=== PATIENT | male | born 1980 | race Caucasian/White ===

== ENCOUNTER 2019-05-17 12:22 | Inpatient (IN) ==
[2019-05-17 13:27] VITALS: BMI 43.7
--- NOTE | 2019-05-17 15:28 | DI ---
EXAM: Chest two views HISTORY: Cough COMPARISON: None TECHNIQUE: Two views of the chest were performed FINDINGS: Mild basilar subsegmental atelectasis. No airspace consolidation. Granulomatous calcific ation. There is no pleural effusion or pneumothorax. The heart is normal in size. The mediastinal contour is normal. There are no acute abnormalities of the bones. IMPRESSION: No acute cardiopulmonary process.
--- NOTE | 2019-05-17 15:52 | CT ---
EXAM: CT of the left foot without contrast History: Left foot pain, diabetes. 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 No acute fracture or dis location. Calcaneal enthesiopathy. Soft tissue ulcer along the lateral plantar aspect of the foot d istal fourth and fifth metatarsal region with associated soft tissue gas measuring about 4.7 cm x 3.0 cm. Evaluation for abscess is limited due to the lack of contrast administration. There is no tavo k cortical destruction identified to suggest osteomyelitis. There is diffuse subcutaneous edema. Mi ld to moderate arthritis is seen at the mid foot. There is probably a soft tissue ulcer along the la teral aspect of the calcaneus. Impression: 1. Soft tissue ulcer with soft tissue gas seen along the lateral plantar surface of the foot is cons istent with deep soft tissue infection and abscess. Recommend orthopedic surgical consult. 2. Diffuse cellulitis. 3. No CT evidence for osteomyelitis at this time. 4. Probable soft tissue ulcer along the lateral aspect of the calcaneus. Correlate with physical ex am.
[2019-05-17] MEDS: VANCOMYCIN 1 GM in SODIUM CHLORIDE 250 ML IV SCH (17:00)
[2019-05-17] MEDS: LYRICA PO SCH (20:51)
[2019-05-17] MEDS ORDERED: NON-FORMULARY MEDICATION SUBCUT SCH (21:00)
[2019-05-18] MEDS: VANCOMYCIN 1 GM in SODIUM CHLORIDE 250 ML IV SCH ×3 (02:56→18:21)
[2019-05-18] MEDS: LYRICA PO SCH ×2 (08:12→20:06)
[2019-05-18] MEDS: COZAAR PO SCH (08:12)
[2019-05-18] MEDS: HUMALOG SUBCUT SCH ×3 (08:13→18:21)
[2019-05-18] MEDS ORDERED: [UNRECOGNIZED DRUG - OTHER] SQ SCH (09:00)
[2019-05-18] MEDS ORDERED: ZESTRIL PO SCH (09:00)
[2019-05-18] MEDS ORDERED: INSULIN GLARGINE HUM REC ANLOG 45 UNIT SQ SCH (09:00)
[2019-05-18] MEDS: LOVENOX SUBCUT SCH (20:06)
[2019-05-18] MEDS: INSULIN GLARGINE HUM REC ANLOG 60 UNIT SUBCUT SCH (20:12)
[2019-05-18] MEDS: [UNRECOGNIZED DRUG - OTHER] SUBCUT SCH (20:12)
[2019-05-19] MEDS: VANCOMYCIN 1 GM in SODIUM CHLORIDE 250 ML IV SCH ×2 (00:08→09:55)
[2019-05-19] MEDS: HUMALOG SUBCUT SCH ×3 (07:59→17:21)
[2019-05-19] MEDS: COZAAR PO SCH (07:59)
[2019-05-19] MEDS: LYRICA PO SCH ×2 (07:59→20:34)
[2019-05-19] MEDS: VANCOMYCIN 2 GM in SODIUM CHLORIDE 500 ML IV SCH ×2 (10:15→17:21)
[2019-05-19] MEDS: [UNRECOGNIZED DRUG - OTHER] SUBCUT SCH (20:35)
[2019-05-19] MEDS: INSULIN GLARGINE HUM REC ANLOG 60 UNIT SUBCUT SCH (20:35)
[2019-05-19] MEDS: LOVENOX SUBCUT SCH (20:39)
[2019-05-19] MEDS ORDERED: SILVADENE CREAM TP SCH (21:00)
[2019-05-19] MEDS: SILVADENE CREAM TP SCH (21:38)
[2019-05-19] MEDS ORDERED: GENTAMICIN SULFATE ONE (23:42)
[2019-05-19] MEDS: GENTAMICIN SULFATE 80 MG in SODIUM CHLORIDE 50 ML IV SCH (23:47)
[2019-05-20] MEDS: VANCOMYCIN 2 GM in SODIUM CHLORIDE 500 ML IV SCH ×2 (00:29→09:12)
[2019-05-20] MEDS ORDERED: GENTAMICIN SULFATE ONE (04:40)
[2019-05-20] MEDS: GENTAMICIN SULFATE 80 MG in SODIUM CHLORIDE 50 ML IV SCH ×2 (04:41→13:31)
[2019-05-20] MEDS ORDERED: SILVADENE CREAM TP SCH (09:00)
[2019-05-20] MEDS: LYRICA PO SCH (09:11)
[2019-05-20] MEDS: COZAAR PO SCH (09:11)
[2019-05-20] MEDS: HUMALOG SUBCUT SCH ×2 (09:18→13:32)
[2019-05-20] MEDS: SILVADENE CREAM TP SCH (09:21)
[2019-05-20] MEDS ORDERED: ATROPINE SULFATE SDV IVP STA (10:27)
[2019-05-20] MEDS ORDERED: DOBUTAMINE 500 MG-D5W 250 ML 500 MG in PREMIX 250 ML D5W 1 BAG IV SCH (10:30)
[2019-05-20] MEDS ORDERED: DOBUTAMINE 500 MG-D5W 250 ML 250 ML IV ONE (11:56)
[2019-05-20] MEDS ORDERED: ATROPINE SULFATE PFS IVP STA (11:57)
--- NOTE | 2019-05-20 12:27 | US ---
EXAM: Ultrasound extremity, limited HISTORY: Concern for abscess. FINDINGS: Gallego-scale and color Doppler imaging was performed of the left foot described as focused a t the left foot around little toe and bottom as well as left foot heel. No clearly defined abscess w as seen by ultrasound. There appeared to be subcutaneous edema. IMPRESSION: 1. No well-defined abscess was identified sonographically. Subcutaneous edema is suggested. Consid er correlation with MRI.
--- NOTE | 2019-05-20 12:33 | PN ---
DATE OF SERVICE: 05/19/19 SUBJECTIVE: The patient had swelling and redness on the metatarsophalangeal joints of the first, second and also the third. There is an opening on the plantar surface which was the initial area that was a blister. It is draining a purulent material. A CT scan does not visualize a well defined abscess cavity but sees necrotic tissue. The patient had intact blisters a week ago and was left in place but the blister had ruptured and so the blister today is debrided. The blister on the left foot was large and also the right foot. The patient at the beginning never had any pain sensation. He did see a blister a week before he went to the Wound Care at [facility] and that was about 9 days ago. I saw him at the office initially and advised him to stay at home and elevate the foot as much as possible except for needed necessities such as going to the bathroom or eating. An MRI of the foot is order today to see further. There was no obvious osteomyelitis on CAT scan. Mother is a nurse who works at the hospital. I did tell them, the patient as well as the mother that I will refer him to Dr. Suarez who did the previous amputation. This foot needs wide incision and drainage to hopefully control the infection. Blisters today were unroofed and there was some necrotic tissue. Cultures on each blistered area was done. Blister on the right foot has better tissue underneath compared to the left. I told them again that I will try to get in touch with the surgeon tomorrow and I will begin with Dr. Suarez, see if he is willing to see him in his service. If not we will have to find another surgeon who will do a drainage of the foot. If we could not find any I told the patient that if they are willing as well as the mother for me to do the procedure. I do not intend to do that unless there is no other way. His diabetes is still uncontrolled. The two are postprandial sugars are in the range of 270's. The Humalog will be increased to 14 units from 10 every meal. The same testing. The areas in the foot will be dressed after washing it with sulfadiazine. He is receiving Vancomycin 2 grams Q 8 hours. Wound Culture showed moderate growth of gram positive cocci is probably likely Staph, also heavy growth of gram negative rods. Probably will be treated with Garamycin for now to be changed depending upon the results of the ID EDGAR. The patient is allergic to Metformin, Sitagliptin, codeine and niacin. MTDD
--- NOTE | 2019-05-20 13:44 | ECHOSTRESS ---
Date of Exam: 05/20/2019 Ordering Physician: DR. PINZON Reason for Echo: CHEST PAIN, DIABETES MELLITUS TYPE 2, HYPERTENSION, DOBUTAMINE STRESS = NO ISCHEMIA M-Mode Normal Adult Results LV Dimensions Normal Adult Results AoV Opening excursions >1.6 LVEDD-base- 3.5-5.8 Ao root dimensions 2.0-3.7 LVESD-base- 3.1-4.6 L. Atrium dimensions 1.9-3.8 Post. Wall thickness 0.8-1.1 IV septum (thickness) 0.7-1.2 Post. Wall excursion 0.72-1.3 Septal motion Systolic motion R. Ventricular cavity 1.5-2.0 LVEF 60% Paradoxical septal wall motion 2-D: NORMAL LEFT VENTRICULAR CONTRACTILITY RESTING AND WITH DOBUTAMINE INFUSION M-MODE: MV: AV: TV: PV: CHAMBER SIZE: WALL MOTION: NORMAL LEFT VENTRICULAR CONTRACTILITY RESTING AND WITH DOBUTAMINE INFUSION PERICARDIUM: INTERPRETATION: 1. NORMAL LEFT VENTRICULAR CONTRACTILITY RESTING AND WITH DOBUTAMINE INFUSION MTDD
--- NOTE | 2019-05-20 13:53 | DOBSTECHO ---
Date of Test: 05/20/2019 Ordering Physician: DR. PINZON Smoking History: NEVER Reason for Examination: CHEST PAIN, DIABETES MELLITUS TYPE 2, HYPERTENSION Current Medications: TYLENOL, IBUPROFEN, VANCOMYCIN HCL, LYRICA, HUMALOG, ZESTRIL, COZAAR, INSULIN GLARGINE, LOVENOX Height: 75" Weight: 349 Glaucoma: NO SaO2: 95% AT REST AND 97% WITH DOBUTAMINE INFUSION ON ROOM AIR Target Heart Rate: 154 / 182 S-T Segment Stage Time HR BPM BP MMHG Rhythm +/- Elevation Depression Symptoms Control Sitting 84 130/86 SR X NONE Dobutamine 250mg/D5W 5cmg/KG/mn 10cmg/KG/mn 3" 92 138/78 SR X NONE 15cmg/KG/mn 2" 112 192/60 SR X NONE 20cmg/KG/mn 2:44 153 184/54 SR X NONE 25cmg/KG/mn 30cmg/KG/mn 35cmg/KG/mn 40cmg/KG/mn 4 MIN POST INFUSION z 134 162/80 SR X NONE 12 MIN POST INFUSION z 100 SR X NONE DURATION OF INFUSION 7 MINUTES AND 44 SECONDS MAXIMUM HEART RATE REACHED 153 Interpretation: 1. NO EVIDENCE OF ISCHEMIA BY ST-T WAVE 2. NO CHEST PAIN OR DISCOMFORT 3. NORMAL LEFT VENTRICULAR CONTRACTILITY RESTING AND WITH DOBUTAMINE INFUSION MTDD
[2019-05-20 13:58] VITALS: BP 133/81; TEMP 98.4
--- NOTE | 2019-05-20 14:45 | HP ---
DATE OF SERVICE: 05/17/19 CHIEF COMPLAINT: Diabetic foot ulcers, increase in pain and worsening drainage. HISTORY OF PRESENT ILLNESS: Mr. Silverman is a pleasant 39 year old patient of Dr. Siddiqi who presented to the office for his second follow of diabetic foot ulcers. Today the area to the left foot ulcer the plantar aspect appears to look worse. There are more areas with surrounding blisters. The center does appear to look necrotic. This abscess has been nonhealing for several weeks now. He has been off and on antibiotics. A culture was done several weeks ago. A culture was not done last week as he was recently on an antibiotic per [facility]. He does have a blister to his left heal that is hard and tender and he has two right heal blisters that are hard and both with open areas. Because this area to the left foot appears necrotic and continuing to drain it is felt that Mr. Silverman needs to be evaluated in the hospital. He has also had complaints of some fever and chills. He does have peripheral venous insufficiency. He has had some complaints of chest pain as well, left sided and this also needs to be evaluated and worked up with a stress test. PAST PERSONAL HISTORY: Diabetes Mellitus type 2 uncontrolled Gout Hypertension Sleep apnea Hyperlipidemia Anxiety Depression Hypertriglyceridemia Neuropathy Venous insufficiency Edema Adenoidectomy Tonsillectomy Ingrown toe nail FAMILY HISTORY: Liver disease. Father history of lung cancer. Diabetes mellitus in his mother and father. SOCIAL HISTORY: Smoking: Never. Alcohol intake: none. Substance abuse: Denies any substance abuse. MEDICATIONS: Silvadene, he has been applying to his foot Sertraline 50mg daily Fenofibrate 65mg once daily Lipitor 40mg daily Lantus 35 units at bedtime Lisinopril 10mg tablet daily Metformin 1000mg tablet twice a day Flexeril 10mg tablet twice a day as needed ALLERGIES: Metformin Janumet Codeine Niacin REVIEW OF SYSTEMS: CONSTITUTIONAL: He does report fevers and chills. No reports of night sweats or weight changes. HEENT: No reports of headaches, nasal drainage or sore throat CARDIOVASCULAR: No reports of irregular rhythm or orthopnea. He has had some peripheral edema worsening over the last couple of weeks. He had had some left sided chest pain. RESPIRATORY: No complaints of shortness of breath, cough or congestion. No reports of lung disease. GI: No complaints of abdominal pain, nausea, vomiting, diarrhea, constipation or blood in the stool. : No reports of dysuria, hematuria, nocturia or urinary incontinence. MUSCULOSKELETAL: No reports of muscles pain, joint redness or swelling. NEUROLOGICAL: No reports of dizziness, fatigue or neurological deficit. PSYCHIATRIC: Denies any anxiety, depression or mood changes. ENDOCRINE: He does have a history of Diabetes Mellitus. No reports of thyroid disease INTEGUMENTARY: He does have complaints of lower extremity diabetic ulcers that are worsening over the past several weeks with lower extremity foot blisters. PHYSICAL EXAMINATION: GENERAL: He is alert and oriented at present. VITAL SIGNS: Height 75", weight 352, BMI 44, respiratory rate 20, pulse 94, blood pressure 140/96 and pulse ox 93% on room air. HEENT: Head is normal and cephalic. Atraumatic. Pupils are equal. Neck is supple. No Lymphadenopathy. No thyroidmegaly, No carotid bruit. CARDIOVASCULAR: S1 and S2. Regular rate and rhythm. LOWER EXTREMITIES: He does have lower extremity edema. Pedal pulses present. Left posterior tibialis and right posterior tibialis absent to left anterior and right anterior. LUNGS: Clear. Breathing normal ABDOMEN: Soft. Bowel sounds are positive. No tenderness. No rebound tenderness. No rigidity. NEUROLOGICAL: Cranial nerves II through XII are grossly intact without any neurological deficit. SKIN: There is a left foot ulceration on the plantar aspect open area to the center, 1cm x 3cm center. That is draining and necrotic with purulent drainage. There are surrounding blisters and erythema. The redness extends to the top of the left foot. The left heal blister is hard and tender and there is two right heal blisters that are hard both with open areas. ASSESSMENT: 1. Left lower extremity cellulitis with necrotic abscess to the left foot 2. Fever and chills 3. Diabetes mellitus type 2, uncontrolled 4. Hypertension 5. Hypertriglyceridemia 6. Hyperlipidemia 7. Peripheral vascular disease with history of toe amputation in the past 8. Neuropathy 9. Chest pains with plans for stress echo during this hospitalization PLAN: 1. Admit the patient 2. Obtain cultures, including wound and blood cultures 3. Chest x-ray 4. EKG 5. Cardiac markers 6. Stress echo 7. CT scan of the lower extremity Please see admit orders. Further orders and recommendation per Dr. Siddiqi. TIME SPENT: GREATER THAN 65 MINUTES MTDD
--- NOTE | 2019-05-20 15:39 | DS ---
DATE OF SERVICE: 05/20/19 HISTORY OF PRESENT ILLNESS/HOSPITAL COURSE: Mr. Silverman is a pleasant 39 year old patient previously of Dr. Bergeron and he tells me that Dr. Bergeron is going to be transferring practices to another [facility]. He has started following Dr. Siddiqi and he has asked Dr. Siddiqi to take a look at his foot ulcerations. Upon second visit with Dr. Siddiqi his wounds and ulcerations looked worse especially the left ulceration, this is a diabetic abscess. It appeared to necrotic and it had increase in drainage. Dr. Siddiqi decided to admit the patient inpatient and do a CT scan of this foot. The CT scan was reviewed and showed soft tissue ulcer with soft tissue gas seen along the lateral plantar surface of the foot, it is consistent with deep soft tissue infection and abscess with recommendation for Orthopedic surgical consult. Also showed diffused cellulitis. There was no CT evidence for osteomyelitis at this time. Also showed probable soft tissue ulcer along the lateral aspect of the calcaneus with correlation with physical exam. 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 This showed a normal left ventricular contractility resting and with Dobutamine infusion. He has not had any further complaints of chest pain during this hospital stay. The Dobutamine stress echo did show no evidence of ischemia by ST -T wave, no chest pain or discomfort and normal left ventricular contractility resting and with Dobutamine infusion. Lower extremity ultrasound showed no well defined abscess identified sonographically, subcutaneous edema was suggested with consider correlation with an MRI. Chest x-ray was done 05/17/19 and it did show no acute cardiopulmonary process. Labs were reviewed. His WBC today on 07/01 was 10.42, hgb 13.1, hct 37.7, plt count 215, sodium 139.6, BUN 9.3, creatinine 0.68, GFR 131.His Total CK less than 30, Procalcitonin on admission less than 0.05. He did have a wound cultures that were positive for MRSA as well as positive for E-coli. His blood cultures were negative times two days. PHYSICAL EXAM: LUNGS: Clear HEART: Regular LOWER EXTREMITIES: Wrapped at discharge in dressing. ABDOMEN: Soft, bowel sounds are positive all four quadrants. He does have an abdominal wound, Dr. Siddiqi is aware of. He reports this is a ulceration from an ingrown hair. It has two blistered areas to his right lower abdomen. He says that it has become irritated from his belt buckle and both of them are approximately quarter sized and they are very superficial blistered looking areas and he does have a dressing intact. VITALS: Temperature 98.4, pulse 102, blood pressure 133/81, respiratory rate 18, O2 sat 93% on room air. Height 6'3, weight 349 pounds. DISCHARGE MEDICATIONS: Same home medications as admission DISCHARGE DIET: Strict ADA diet DISCHARGE ACTIVITY LEVEL: As instructed per [facility] staff and [facility] providers. FINAL DIAGNOSES: 1. Necrotic abscess to the left foot, diabetic abscess with left lower extremity cellulitis to the left lower extremity. 2. 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 Uncontrolled Diabetes Mellitus type 2 with HGB and A1c done just prior to admission on 05/15/19 of 11.31%. 4. Peripheral vascular disease 5. Hypertension 6. Lower extremity neuropathy 7. Dyslipidemia 8. Obesity PLAN: 1. Followup appointment is after release from [facility] and he will followup with Dr. Siddiqi. Further orders and labs will discussed at that followup appointment. 2. The patient is being transferred to [facility] under the care of a Hospitalist and will be followed by Vascular under the care of Dr. Odom who has agreed to evaluate the patient. TIME SPENT: GREATER THAN 30 MINUTES MTDD
--- NOTE | 2019-09-26 11:03 | PN ---
DATE OF SERVICE: 05/20/19 SUBJECTIVE: The decision has been made to transfer the patient to [facility] under the care of the hospitalist and the patient will be followed by vascular under the care of Dr. Odom who has agreed to evaluate the patient for his necrotic abscess of the left foot. LUNGS: Clear HEART: Regular rate and rhythm LOWER EXTREMITIES: They are wrapped ABDOMEN: Soft. Bowel sounds are positive. He does have an abdominal wound and Dr. Siddiqi is aware of this. He reports this is an ulceration from an ingrown hair. It has two blistered areas to his right lower abdomen. He says that it has become irritated from his belt buckle and both of them are approximately quarter sized and they are very superficial blistered looking areas and he does have a dressing intact. Today his WBC is 10.42, hgb 13.1, hct 37.7, plt count 215, sodium 137.6, BUN 10.4, creatinine 0.74, glucose 249.7. Again the plan is to transfer the patient today to [facility]. VITALS: Temperature 98.4, pulse 102, blood pressure 133/81, respiratory rate 18, O2 saturation 93% on room air, Height 6'3 and weight 349 pounds. MTDD
== END 2019-05-20 15:53 | disposition short-term general hospital (02) | DRG 593 ==
LOC: MEDSURG B 12:22
PROVIDERS: ADMIT General Practice; ATTEND General Practice
DX: Z79.4 Long term (current) use of insulin; R23.8 Other skin changes; E78.1 Pure hyperglyceridemia; R07.9 Chest pain, unspecified; G62.9 Polyneuropathy, unspecified; R50.9 Fever, unspecified; E11.65 Type 2 diabetes mellitus with hyperglycemia; Z68.41 Body mass index [BMI] 40.0-44.9, adult; L97.929 Non-pressure chronic ulcer of unspecified part of left lower leg with unspecified severity; R60.0 Localized edema; I10 Essential (primary) hypertension; E11.622 Type 2 diabetes mellitus with other skin ulcer; E66.9 Obesity, unspecified; E78.5 Hyperlipidemia, unspecified; I73.9 Peripheral vascular disease, unspecified